=== PATIENT | female | born 1990 | race African-American/Black ===

== ENCOUNTER 2016-12-12 15:12 | Emergency (ER) | payer OTHER ==
[~2016-12-12] VITALS: Ht 157.5 cm; Wt 71.2 kg
[2016-12-12 15:15] VITALS: BP 126/63
[2016-12-12 15:41] LABS: BASO % 1 % (0-3); EOS % 1 % (0-3); HEMATOCRIT 33.7 % (36.0-47.0); HEMOGLOBIN 10.9 g/dL (12.0-15.5); LYMPH # 1.6 x10^3/uL (1.0-4.8); LYMPH % 26 % (24-48); MEAN CORPUSCULAR HEMOGLOBIN 24 pg (25-35); MEAN CORPUSCULAR HGB CONC 32 g/dL (31-37); MEAN CORPUSCULAR VOLUME 74 fL (79-100); MONO % 8 % (0-9); NEUT % 65 % (31-73); PLATELET COUNT 314 x10^3/uL (140-400); RED BLOOD COUNT 4.58 x10^6/uL (3.50-5.40); RED CELL DISTRIBUTION WIDTH 13.6 % (11.5-14.5); WHITE BLOOD COUNT 6.2 x10^3/uL (4.0-11.0)
[2016-12-12 16:03] LABS: CALCIUM 8.9 mg/dL (8.5-10.1); CREATININE 0.6 mg/dL (0.6-1.0); GFR 146.2; POTASSIUM 3.6 mmol/L (3.5-5.1)
[2016-12-12 16:13] LABS: ALBUMIN 3.5 g/dL (3.4-5.0); ALBUMIN/GLOBULIN RATIO 0.8 (1.0-1.7); TOTAL BILIRUBIN 0.4 mg/dL (0.2-1.0); TOTAL PROTEIN 8.1 g/dL (6.4-8.2)
[2016-12-12] MEDS ORDERED: ACETAMINOPHEN 325 MG TABLET. PO ONE (16:15)
--- NOTE | 2016-12-12 16:53 | ED.ADGEN ---
Past Medical History Past Medical History: No Pertinent History Past Surgical History: Alcohol Use: None Drug Use: None Adult General Chief Complaint Chief Complaint: VAGINAL BLEEDING HPI HPI Patient is a 26 year old Cha female who presents with vaginal bleeding for the past week. Patient states she is approximately 8-10 months . Bleeding initially was bright red and has turned to dark brown and spotting today. Patient initially reported abdominal/pelvic cramping, but denies any lower pelvic pain or cramping at this time. She denies dizziness lightheadedness shortness of breath chest pain and palpitations. She does report a low-grade headache. Patient does not currently have OB and has not received services. Review of Systems Review of Systems ROS as per HPI. Current Medications Current Medications Current Medications Medications (Trade) Dose Ordered Sig/Koby Start Time Stop Time Status Last Admin Dose Admin Acetaminophen (Tylenol) 650 mg 1X ONCE 12/12/16 16:15 12/12/16 16:16 DC 12/12/16 16:44 650 MG Allergies Allergies Allergies Uncoded Allergies Type Severity Reaction Last Updated Verified chicken Adverse Reaction Intermediate Swelling 06/30/14 Physical Exam Physical Exam Constitutional: Well developed, well nourished, no acute distress, non-toxic appearance. HENT: Normocephalic, atraumatic, bilateral external ears normal, oropharynx moist, no oral exudates, nose normal. Eyes: PERRL. Neck: Normal range of motion. Cardiovascular:Heart rate regular rhythm, no murmur. Lungs & Thorax: Bilateral breath sounds clear to auscultation. Abdomen: Bowel sounds normal, soft, no tenderness. Skin: Warm, dry. Back: No tenderness, no CVA tenderness. Extremities: No tenderness. Neurologic: Alert and oriented X 3, normal motor function, normal sensory function, no focal deficits noted. Psychologic: Affect normal, judgement normal, mood normal. Current Patient Data Vital Signs Vital Signs Date Time Temp Pulse Resp B/P (MAP) Pulse Ox O2 Delivery O2 Flow Rate FiO2 12/12/16 15:15 98.0 98 18 126/63 (84) 100 Room Air 98.0 Lab Values Laboratory Tests Test 12/12/16 14:26 12/12/16 15:29 POC Urine HCG, Qualitative Hcg positive (Negative) White Blood Count 6.2 x10^3/uL (4.0-11.0) Red Blood Count 4.58 x10^6/uL (3.50-5.40) Hemoglobin 10.9 g/dL (12.0-15.5) L Hematocrit 33.7 % (36.0-47.0) L Mean Corpuscular Volume 74 fL (79-100) L Mean Corpuscular Hemoglobin 24 pg (25-35) L Mean Corpuscular Hemoglobin Concent 32 g/dL (31-37) Red Cell Distribution Width 13.6 % (11.5-14.5) Platelet Count 314 x10^3/uL (140-400) Neutrophils (%) (Auto) 65 % (31-73) Lymphocytes (%) (Auto) 26 % (24-48) Monocytes (%) (Auto) 8 % (0-9) Eosinophils (%) (Auto) 1 % (0-3) Basophils (%) (Auto) 1 % (0-3) Neutrophils # (Auto) 4.0 x10^3uL (1.8-7.7) Lymphocytes # (Auto) 1.6 x10^3/uL (1.0-4.8) Monocytes # (Auto) 0.5 x10^3/uL (0.0-1.1) Eosinophils # (Auto) 0.1 x10^3/uL (0.0-0.7) Basophils # (Auto) 0.0 x10^3/uL (0.0-0.2) Maternal Serum HCG Beta Subunit 537066 mIU/mL (0-6) H Sodium Level 137 mmol/L (136-145) Potassium Level 3.6 mmol/L (3.5-5.1) Chloride Level 104 mmol/L (98-107) Carbon Dioxide Level 24 mmol/L (21-32) Anion Gap 9 (6-14) Blood Urea Nitrogen 8 mg/dL (7-20) Creatinine 0.6 mg/dL (0.6-1.0) Estimated GFR (Cockcroft-Gault) 146.2 BUN/Creatinine Ratio 13 (6-20) Glucose Level 106 mg/dL (70-99) H Calcium Level 8.9 mg/dL (8.5-10.1) Total Bilirubin 0.4 mg/dL (0.2-1.0) Aspartate Amino Transferase (AST) 25 U/L (15-37) Alanine Aminotransferase (ALT) 21 U/L (14-59) Alkaline Phosphatase 45 U/L (46-116) L Total Protein 8.1 g/dL (6.4-8.2) Albumin 3.5 g/dL (3.4-5.0) Albumin/Globulin Ratio 0.8 (1.0-1.7) L Laboratory Tests 12/12/16 15:29 Laboratory Tests 12/12/16 15:29 EKG EKG [] Radiology/Procedures Radiology/Procedures [OB ultrasound: Viable 11 week IUP.] Course & Med Decision Making Course & Med Decision Making Pertinent Labs and Imaging studies reviewed. (See chart for details) [First trimester vaginal bleeding with viable IUP. Patient has had bleeding for the past 5 days which is gradually subsided. She is a positive. Recommend home with pelvic rest and FL[facility] SERVICE SPECIALIST referral] Yue Disclaimer Dragon Disclaimer This electronic medical record was generated, in whole or in part, using a voice recognition dictation system. CELSA GRANT DO December 12, 2016 16:53
--- NOTE | 2016-12-12 19:27 | RAD ---
PROCEDURE First trimester OB ultrasound. HISTORY Vaginal bleeding. TECHNIQUE Transabdominal 1st trimester OB ultrasound was performed. COMPARISON None for this . FINDINGS Single live intrauterine with heart tones of 155 beats per minute is noted. [place] lump length measurement on average is 4.60 centimeters, 11 weeks 3 days for an GRETEL by ultrasound of June 30, 2017. There is no evidence of implantation bleed. Gestational sac size is concordant. Both maternal ovaries are visualized and grossly unremarkable, color flow and waveform documented. There is no free pelvic fluid. IMPRESSION Single live intrauterine measuring 11 weeks 3 days with heart tones of 155 beats per minute. Electronically signed by: Neil Ulloa MD (December 12, 2016 18:54:22)
== END 2016-12-12 19:20 | disposition home or self-care (01) ==
LOC: ER 17:15
DX: O46.91 Antepartum hemorrhage, unspecified, first trimester (principal); Z91.018 Allergy to other foods; Z3A.11 11 weeks gestation of pregnancy
CPT/HCPCS: 36415; 76801; 80053; 81025; 84702; 84703; 85027; 99285-25

== ENCOUNTER 2017-06-23 07:03 | Inpatient (IN) | payer OTHER ==
[~2017-06-23] VITALS: Ht 154.9 cm; Wt 71.7 kg
[2017-06-23] MEDS ORDERED: IBUPROFEN 600 MG TABLET. PO PRN (08:00)
[2017-06-23] MEDS ORDERED: fentaNYL PF VIAL 100 MCG/2 ML VIAL IV PRN (08:00)
[2017-06-23] MEDS ORDERED: LIDOCAINE 1% PF 30 ML VIAL. INJ PRN (08:00)
[2017-06-23] MEDS ORDERED: 0.9 % SODIUM CHLORIDE 10 ML DISP.SYRIN. IV PRN (08:00)
[2017-06-23] MEDS ORDERED: OXYTOCIN 30 UNIT/500 ML PREMIX 500 ML IV PRN (08:00)
[2017-06-23] MEDS ORDERED: IV RINGERS,LACTATED 1000ML 1,000 ML IV PRN (08:00)
[2017-06-23] MEDS: IV RINGERS,LACTATED 1000ML 1,000 ML IV SCH ×2 (08:10→09:36)
[2017-06-23 08:11] LABS: BASO % 0 % (0-3); EOS % 0 % (0-3); HEMATOCRIT 37.8 % (36.0-47.0); HEMOGLOBIN 11.8 g/dL (12.0-15.5); LYMPH % 13 % (24-48); MEAN CORPUSCULAR HEMOGLOBIN 23 pg (25-35); MEAN CORPUSCULAR HGB CONC 31 g/dL (31-37); MEAN CORPUSCULAR VOLUME 75 fL (79-100); MONO % 6 % (0-9); NEUT % 81 % (31-73); PLATELET COUNT 215 x10^3/uL (140-400); RED BLOOD COUNT 5.05 x10^6/uL (3.50-5.40); RED CELL DISTRIBUTION WIDTH 14.1 % (11.5-14.5)
[2017-06-23] MEDS ORDERED: AMPICILLIN SODIUM 2 GM in IV NORMAL SALINE 100ML 100 ML IV ONE (08:30)
[2017-06-23] MEDS ORDERED: AMPICILLIN SODIUM IV Push 2 GM VIAL. IVP ONE (08:30)
[2017-06-23] MEDS ORDERED: ROPIVacaine 0.2% IN 0.9%NACL PF 40 MG/20 ML DISP.SYRIN. ONE ×2 (09:14→10:00)
[2017-06-23] MEDS ORDERED: L&D EPIDURAL CASSETTE 100 ML EP ONE (09:15)
[2017-06-23] MEDS ORDERED: L&D EPIDURAL CASSETTE 100 ML PUMP.RESVR. EP ONE (10:00)
--- NOTE | 2017-06-23 11:01 | PDOC1 ---
OB - History Hx of Present Care: Good Care Ultrasounds: Normal mid trimester US Obstetrical Complications: None Medical Complications: None Past Family/Social History * Past Medical, Surgical, Family and Obstetric Histories reviewed from chart. Blood Type: A+ Rubella: Immune RPR/VDRL: Negative GBS Status: Negative HBsAG: Negative OB - Chief Complaint & HPI Date of Admission: Date of Admission: Jun 23, 2017 at 07:03 Chief Complaint/History : 4 Para: 3 Reason for admission: active labor Admission Nurse Assessment Rev: Yes Problems: OB - Admission Exam Physical Exam Vitals: VS - Last 72 Hours, by Label Date Time Temp Pulse Resp B/P (MAP) Pulse Ox O2 Delivery O2 Flow Rate FiO2 06/23/17 08:52 22 Room Air 06/23/17 08:09 22 Room Air HEENT: Normal, Nasal Mucosa Normal, Oropharynx Normal, Moist Membranes, Fontanelles Normal Heart: Regular Rate Lungs: Clear, Equal Abdomen: Gravid Extremities: Normal Pulses, No tenderness or swelling Cervical Dilatation: 7cm Effacement: 75% Station: -1 Membranes: Intact Amniotic Fluid: Clear Heart Rate: Normal Accelerations: Accelerations Present Decelerations: No decelerations Short Term Variability: Present Mcfp Variability: Moderate Contractions on Admission: < 5 Minutes Apart Intensity: Firm Assessment/Plan Assessment/Plan TIUP -MANI Problems: KAVON STONE MD Jun 23, 2017 11:01
--- NOTE | 2017-06-23 11:02 | PDOC ---
VAGINAL DELIVERY DATE DATE: 06/23/17 TIME: 11:01 : 4 Para: 3 EDC: Jul 07, 2017 VAGINAL DELIVERY: VTX VACCUM ASSISTED: No PLACENTA: Spontaneous SEX: Male WEIGHT Weight [ ] Nuchal Cord: No Amniotic Fluid: Clear PAIN: Epidural EPISIOTOMY: No EXTENSION: No EBL 300cc COMPLICATIONS None CONDITION Stable Problems: KAVON STONE MD Jun 23, 2017 11:02
[2017-06-23] MEDS: IBUPROFEN 800 MG TABLET. PO PRN ×2 (11:31→20:19)
[2017-06-23] MEDS ORDERED: HYDR-971 PO (12:20)
[2017-06-23] MEDS ORDERED: HYDR50TA PO (12:20)
[2017-06-23] MEDS ORDERED: PREN1TAB80 PO (12:20)
[2017-06-23] MEDS ORDERED: IV RINGERS,LACTATED 1000ML 1,000 ML IV SCH (13:07)
[2017-06-23] MEDS ORDERED: fentaNYL PF VIAL 100 MCG/2 ML VIAL EPI PRN (13:15)
[2017-06-23] MEDS ORDERED: ROPIVacaine 0.2% IN 0.9%NACL PF 40 MG/20 ML DISP.SYRIN. EPI PRN (13:15)
[2017-06-23] MEDS ORDERED: NALOXONE 0.4 MG/ML VIAL. IV PRN (13:15)
[2017-06-23] MEDS ORDERED: L&D EPIDURAL CASSETTE 100 ML EP PRN (13:15)
[2017-06-23] MEDS ORDERED: BUPIVACAINE MPF 0.25% 10 ML VIAL. EPI PRN (13:15)
[2017-06-23 15:00] VITALS: BP 102/68
[2017-06-23] MEDS: HYDROcodone/APAP 5/325MG 1 TAB TABLET PO PRN ×2 (15:10→20:19)
[2017-06-23 17:30] VITALS: BP 110/72
[2017-06-23 22:04] VITALS: BP 105/65
[2017-06-24] MEDS: IBUPROFEN 800 MG TABLET. PO PRN ×2 (06:10→20:02)
[2017-06-24] MEDS: HYDROcodone/APAP 5/325MG 1 TAB TABLET PO PRN ×2 (06:11→20:02)
[2017-06-24 06:12] VITALS: BP 98/63
[2017-06-24 10:00] VITALS: BP 99/59
--- NOTE | 2017-06-24 14:14 | PDOC ---
Provider Note Provider Note Dooing well VSS Uterus NTTP FU in AM KAVON STONE MD Jun 24, 2017 14:14
[2017-06-24 16:00] VITALS: BP 110/69
[2017-06-24 22:30] VITALS: BP 102/61
[2017-06-25 05:15] VITALS: BP 105/67
[2017-06-25] MEDS: IBUPROFEN 800 MG TABLET. PO PRN ×2 (05:21→12:29)
[2017-06-25] MEDS: HYDROcodone/APAP 5/325MG 1 TAB TABLET PO PRN ×2 (05:21→17:40)
[2017-06-25 14:46] VITALS: BP 97/61
[2017-06-25] MEDS ORDERED: HYDR-971 PO (18:01)
[2017-06-25] MEDS ORDERED: NAPR500T4 PO (18:01)
--- NOTE | 2017-06-25 18:02 | PDOC3 ---
OB DISCHARGE SUMMARY DATE OF ADMISSION: 06/23/17 DATE OF DISCHARGE: 06/25/17 REASON FOR ADMISSION: Onset of labor PROCEDURES: Ultrasound INTRAPARTUM PROCEDURES: Spontanous Vag Deliv PROCEDURES: None OPERATIONS: None DISCHARGE DIAGNOSIS: Term Delivered DISCHARGE INFORMATION: Activity, Diet HOSPITAL COURSE Unremarkable CONDITION AT DISCHARGE Stable KAVON STONE MD Jun 25, 2017 18:02
== END 2017-06-25 18:47 | disposition home or self-care (01) | DRG 775 ==
LOC: 3 SO LND 07:03 → OBSVTOIN 08:00 → 3 NORTH 13:30
PROVIDERS: ADMIT Specialist; ATTEND Specialist
PROC: 10E0XZZ Delivery of Products of Conception, External Approach (ICD-10-PCS; principal; 2017-06-23)
PROC: 3E0R3BZ Introduction of Anesthetic Agent into Spinal Canal, Percutaneous Approach (ICD-10-PCS; 2017-06-23)
PROC: 00HU33Z Insertion of Infusion Device into Spinal Canal, Percutaneous Approach (ICD-10-PCS; 2017-06-23)
DX: O34.219 Maternal care for unspecified type scar from previous cesarean delivery (principal); Z37.0 Single live birth; Z3A.00 Weeks of gestation of pregnancy not specified
CPT/HCPCS: 36415; 85025; 86593; 86850; 86900; 86901; G0379; J0290; J2590; J2795; J3010; J7120

== ENCOUNTER 2017-10-12 13:16 | Emergency (ER) | payer OTHER ==
[2017-10-12 14:07] LABS: BILIRUBIN,URINE NEGATIVE (NEG); CLARITY,URINE CLEAR; COLOR,URINE YELLOW; GLUCOSE,URINE NEGATIVE (NEG); NITRITE,URINE NEGATIVE (NEG); PH,URINE 5.5; PROTEIN,URINE NEGATIVE (NEG-TRACE); UROBILINOGEN,URINE 0.2 mg/dL (0.2 mg/dL)
[2017-10-12 14:18] LABS: BACTERIA,URINE 0 /HPF (0-FEW); RBC,URINE 0 /HPF (0-2); SQUAMOUS EPITHELIAL CELL,UR OCC /LPF
[2017-10-12 14:19] LABS: NEGATIVE OBC STREP NEG; POSITIVE OBC STREP POS
[2017-10-12 14:21] LABS: INFLUENZA A PATIENT NEGATIVE (NEGATIVE); INFLUENZA B PATIENT NEGATIVE (NEGATIVE); OBC FLU VALID
[2017-10-12] MEDS: IBUPROFEN 400 MG TABLET. PO (14:33)
[2017-10-12] MEDS: cefTRIAXone IM 1 GM VIAL IM (15:03)
== END 2017-10-12 15:26 | disposition home or self-care (01) ==
LOC: ER 13:16
DX: J02.0 Streptococcal pharyngitis (principal); M54.5 Low back pain; R51 Headache; Z91.018 Allergy to other foods
CPT/HCPCS: 81001; 87804; 87804-59; 87880; 96372; 99284-25; J0696

== ENCOUNTER → 2018-03-22 | Outpatient (CLI) | payer OTHER ==
[2017-10-12 13:20] VITALS: BP 111/68
[~2018-03-22] MED LIST: AMOX875T PO; CONTRAST GIVEN. MC PRN; HYDR-971 PO; HYDR50TA PO; IOHEXOL 240 MG/ML 50ML VIAL. PO ONE; IOHEXOL 300 MG/ML 100ML VIAL. IV ONE; NAPR-514 PO; PREN1TAB80 PO
--- NOTE | 2018-03-22 10:44 | RAD ---
Complete abdominal ultrasound dated 03/22/2018. No comparison available. CLINICAL INDICATION: Abdominal pain. Right upper quadrant pain. FINDINGS: Liver is homogeneous in echogenicity. No focal hepatic mass. Intrahepatic and extra hepatic biliary tree normal in caliber. The common bile duct measures 3 mm. Gallbladder normal in size and echogenicity. No gallbladder wall thickening or pericholecystic fluid. No gallstones are seen. Right kidney measures 12.3 cm in length. Left kidney measures 12.9 cm in length. No hydronephrosis. Spleen is homogeneous in echogenicity and measures 9.6 cm longitudinal. Limited visualized portions of pancreas, aorta and IVC unremarkable. No significant ascites. IMPRESSION: No acute sonographic abnormality. Electronically signed by: Yefri Sheppard MD (03/22/2018 10:41 AM) [id number]
--- NOTE | 2018-03-22 12:54 | RAD ---
CT ABDOMEN W/CONTRAST dated 03/22/2018 11:29 AM Indication: History of ventral hernia.VENTRAL HERNIA. IV OMNI 300 75 MLS AND PO OMNI 240 50 MLS. Comparison: No comparison is available. Technique: Contiguous axial imaging of the abdomen performed after the administration of 75 cc Isovue-370. One or more of the following individualized dose reduction techniques were utilized for this examination: 1. Automated exposure control 2. Adjustment of the mA and/or kV according to patient size 3. Use of iterative reconstruction technique Findings: Limited images of lung bases are clear. Heart size within normal limits. No pleural or pericardial effusion. Liver, spleen, pancreas, adrenal glands, gallbladder and kidneys are unremarkable. No hydronephrosis. Partially opacified GI tract is normal in caliber. Possible mild wall thickening of the ascending colon. The appendix is upper limits of normal caliber measuring 6 to 7 mm. No definite inflammatory changes in the periappendiceal fat. No free fluid. There a few borderline enlarged lymph nodes in the ileocolic region and right mesentery measuring up to 14 mm short axis (image 36). No free fluid or retroperitoneal adenopathy. The abdominal aorta normal in caliber. Small supra umbilical ventral hernia containing only fat. Bone windows show no acute findings. IMPRESSION: 1. Suspected mild wall thickening of the descending colon, nonspecific. Consider mild infectious or inflammatory colitis. 2. The appendix is upper limits of normal in caliber, however there are no inflammatory changes in the periappendiceal fat. This could be a normal variant. Early appendicitis cannot be completely excluded. Recommend correlation with clinical and laboratory data. 3. Mildly enlarged ileocolic lymph nodes, nonspecific. 4. Small supraumbilical ventral hernia containing only fat. Electronically signed by: Yefri Sheppard MD (03/22/2018 12:51 PM) [id number]
== END | disposition home or self-care (01) ==
LOC: US 09:24
PROVIDERS: ATTEND Specialist
DX: K43.9 Ventral hernia without obstruction or gangrene (principal); R60.0 Localized edema; Z91.018 Allergy to other foods
CPT/HCPCS: 74160; 76700; Q9966; Q9967

== ENCOUNTER → 2018-04-15 | Day surgery (SDC) | payer OTHER ==
[~2018-04-15] VITALS: Ht 154.9 cm; Wt 68.0 kg
[~2018-04-15] MED LIST changes: +BUPIVAC MPF-EPI 0.5%-1:200000 30 ML VIAL. ONE; -CONTRAST GIVEN. MC PRN; +DEXAMETHASONE SOD PHOS 20 MG/5 ML VIAL. ONE; +ESMOLOL 100 MG/10 ML VIAL. IV ONE; +GLYCOPYRROLATE 1 MG/5 ML VIAL. ONE; +HYDROcodone/APAP 7.5/325MG 1 TAB TABLET PO ONE; +HYDROmorphone 2 MG/ML VIAL IV PRN; -IOHEXOL 240 MG/ML 50ML VIAL. PO ONE; -IOHEXOL 300 MG/ML 100ML VIAL. IV ONE; +IV RINGERS,LACTATED 1000ML 1,000 ML IV SCH; +LIDOCAINE 1% PF 2 ML VIAL. ID PRN; +MIDAZOLAM HCL/PF 2 MG/2 ML VIAL. ONE; +MORPHINE SULFATE 2 MG/ML VIAL. IV PRN; +NEOSTIGMINE METHYLSULFATE 5 MG/5 ML SYRINGE. ONE; +ONDANSETRON PF 4 MG/2 ML VIAL. IV PRN; +ONDANSETRON PF 4 MG/2 ML VIAL. ONE; +PROCHLORPERAZINE 10 MG/2 ML VIAL. IV PRN; +PROPOFOL 20 ML IV ONE; +ROCURONIUM 100 MG/10 ML VIAL. ONE; +SEVOFLURANE 61 TO 120 MINUTES. IH ONE; +fentaNYL PF VIAL 100 MCG/2 ML VIAL IV PRN; +fentaNYL PF VIAL 100 MCG/2 ML VIAL ONE
[2018-04-15 09:02] LABS: U PREG PATIENT NEGATIVE (NEG)
[2018-04-15 09:04] LABS: BASO % 1 % (0-3); EOS # 0.1 x10^3/uL (0.0-0.7); EOS % 2 % (0-3); HEMATOCRIT 31.8 % (36.0-47.0); HEMOGLOBIN 10.3 g/dL (12.0-15.5); LYMPH # 1.3 x10^3/uL (1.0-4.8); LYMPH % 24 % (24-48); MEAN CORPUSCULAR HEMOGLOBIN 23 pg (25-35); MEAN CORPUSCULAR HGB CONC 32 g/dL (31-37); MEAN CORPUSCULAR VOLUME 73 fL (79-100); MONO # 0.5 x10^3/uL (0.0-1.1); MONO % 9 % (0-9); NEUT # 3.6 x10^3uL (1.8-7.7); NEUT % 65 % (31-73); PLATELET COUNT 378 x10^3/uL (140-400); RED BLOOD COUNT 4.38 x10^6/uL (3.50-5.40); RED CELL DISTRIBUTION WIDTH 14.9 % (11.5-14.5); WHITE BLOOD COUNT 5.5 x10^3/uL (4.0-11.0)
[2018-04-15 09:10] LABS: CALCIUM 8.9 mg/dL (8.5-10.1); CREATININE 0.8 mg/dL (0.6-1.0); GFR 104.1; POTASSIUM 3.6 mmol/L (3.5-5.1)
[2018-04-15 09:12] LABS: PROTHROMBIN TIME PATIENT 13.3 SEC (11.7-14.0)
[2018-04-15 09:17] LABS: ALBUMIN 3.4 g/dL (3.4-5.0); ALBUMIN/GLOBULIN RATIO 0.7 (1.0-1.7); TOTAL BILIRUBIN 0.2 mg/dL (0.2-1.0); TOTAL PROTEIN 8.5 g/dL (6.4-8.2)
--- NOTE | 2018-04-15 09:31 | PDOC ---
SURGICAL PROGRESS NOTE Subjective No change in disctated H&P Vital Signs Vital Signs Date Time Temp Pulse Resp B/P (MAP) Pulse Ox O2 Delivery O2 Flow Rate FiO2 04/15/18 08:14 Room Air 04/15/18 08:11 97.2 80 98 97.2 04/15/18 08:07 18 114/68 Labs Laboratory Tests Test 04/15/18 07:50 04/15/18 08:40 Urine Test Negative (NEG) White Blood Count 5.5 x10^3/uL (4.0-11.0) Red Blood Count 4.38 x10^6/uL (3.50-5.40) Hemoglobin 10.3 g/dL (12.0-15.5) Hematocrit 31.8 % (36.0-47.0) Mean Corpuscular Volume 73 fL (79-100) Mean Corpuscular Hemoglobin 23 pg (25-35) Mean Corpuscular Hemoglobin Concent 32 g/dL (31-37) Red Cell Distribution Width 14.9 % (11.5-14.5) Platelet Count 378 x10^3/uL (140-400) Neutrophils (%) (Auto) 65 % (31-73) Lymphocytes (%) (Auto) 24 % (24-48) Monocytes (%) (Auto) 9 % (0-9) Eosinophils (%) (Auto) 2 % (0-3) Basophils (%) (Auto) 1 % (0-3) Neutrophils # (Auto) 3.6 x10^3uL (1.8-7.7) Lymphocytes # (Auto) 1.3 x10^3/uL (1.0-4.8) Monocytes # (Auto) 0.5 x10^3/uL (0.0-1.1) Eosinophils # (Auto) 0.1 x10^3/uL (0.0-0.7) Basophils # (Auto) 0.0 x10^3/uL (0.0-0.2) Prothrombin Time 13.3 SEC (11.7-14.0) Prothromb Time International Ratio 1.1 (0.8-1.1) Sodium Level 140 mmol/L (136-145) Potassium Level 3.6 mmol/L (3.5-5.1) Chloride Level 106 mmol/L (98-107) Carbon Dioxide Level 23 mmol/L (21-32) Anion Gap 11 (6-14) Blood Urea Nitrogen 15 mg/dL (7-20) Creatinine 0.8 mg/dL (0.6-1.0) Estimated GFR (Cockcroft-Gault) 104.1 BUN/Creatinine Ratio 19 (6-20) Glucose Level 84 mg/dL (70-99) Calcium Level 8.9 mg/dL (8.5-10.1) Total Bilirubin 0.2 mg/dL (0.2-1.0) Aspartate Amino Transf (AST/SGOT) 14 U/L (15-37) Alanine Aminotransferase (ALT/SGPT) 20 U/L (14-59) Alkaline Phosphatase 93 U/L (46-116) Total Protein 8.5 g/dL (6.4-8.2) Albumin 3.4 g/dL (3.4-5.0) Albumin/Globulin Ratio 0.7 (1.0-1.7) Laboratory Tests Test 04/15/18 07:50 04/15/18 08:40 Urine Test Negative (NEG) White Blood Count 5.5 x10^3/uL (4.0-11.0) Red Blood Count 4.38 x10^6/uL (3.50-5.40) Hemoglobin 10.3 g/dL (12.0-15.5) Hematocrit 31.8 % (36.0-47.0) Mean Corpuscular Volume 73 fL (79-100) Mean Corpuscular Hemoglobin 23 pg (25-35) Mean Corpuscular Hemoglobin Concent 32 g/dL (31-37) Red Cell Distribution Width 14.9 % (11.5-14.5) Platelet Count 378 x10^3/uL (140-400) Neutrophils (%) (Auto) 65 % (31-73) Lymphocytes (%) (Auto) 24 % (24-48) Monocytes (%) (Auto) 9 % (0-9) Eosinophils (%) (Auto) 2 % (0-3) Basophils (%) (Auto) 1 % (0-3) Neutrophils # (Auto) 3.6 x10^3uL (1.8-7.7) Lymphocytes # (Auto) 1.3 x10^3/uL (1.0-4.8) Monocytes # (Auto) 0.5 x10^3/uL (0.0-1.1) Eosinophils # (Auto) 0.1 x10^3/uL (0.0-0.7) Basophils # (Auto) 0.0 x10^3/uL (0.0-0.2) Prothrombin Time 13.3 SEC (11.7-14.0) Prothromb Time International Ratio 1.1 (0.8-1.1) Sodium Level 140 mmol/L (136-145) Potassium Level 3.6 mmol/L (3.5-5.1) Chloride Level 106 mmol/L (98-107) Carbon Dioxide Level 23 mmol/L (21-32) Anion Gap 11 (6-14) Blood Urea Nitrogen 15 mg/dL (7-20) Creatinine 0.8 mg/dL (0.6-1.0) Estimated GFR (Cockcroft-Gault) 104.1 BUN/Creatinine Ratio 19 (6-20) Glucose Level 84 mg/dL (70-99) Calcium Level 8.9 mg/dL (8.5-10.1) Total Bilirubin 0.2 mg/dL (0.2-1.0) Aspartate Amino Transf (AST/SGOT) 14 U/L (15-37) Alanine Aminotransferase (ALT/SGPT) 20 U/L (14-59) Alkaline Phosphatase 93 U/L (46-116) Total Protein 8.5 g/dL (6.4-8.2) Albumin 3.4 g/dL (3.4-5.0) Albumin/Globulin Ratio 0.7 (1.0-1.7) JUDY SLOAN MD Apr 15, 2018 09:31
--- NOTE | 2018-04-15 09:33 | HP ---
ADMIT DATE: 04/15/2018 HISTORY OF PRESENT ILLNESS: The patient is sent to me by her poultry debeaker because of periumbilical pain. Apparently, this has been going on and off since her last delivery and she has been seen and in fact had MRI, which showed a supraumbilical ventral hernia. The patient has pain there from time to time and the MRI did show fat in it, no bowel in it. PAST MEDICAL HISTORY: Shows normal childhood diseases. She has no history of diabetes, cancer, TB, heart disease, or other problems. She has had a sonogram, which showed no abnormalities of the abdomen. ALLERGIES: She has no allergies. PAST SURGICAL HISTORY: Has never had surgery before. SOCIAL HISTORY: She is , has 4 children, the youngest being only a month or 2 old. The patient does not smoke, drink or use illicit drugs. FAMILY HISTORY: Noncontributory. REVIEW OF SYSTEMS: Are just that she has this pain in the periumbilical area fairly sharp, went to the Emergency Room once or twice a couple of weeks ago, in fact in the hospital for 2-3 days. No problems were noted. PHYSICAL EXAMINATION: GENERAL: Shows a slightly obese female, in no acute distress except for some periumbilical pain. HEAD, EARS, EYES, NOSE AND THROAT: Grossly normal. CHEST: Clear to auscultation bilaterally. HEART: No murmurs, heaves, friction rubs or thrills and the rate was 75 beats per minute, was regular. GASTROINTESTINAL: Examination of the abdomen shows it to be somewhat obese. There is pain at the umbilicus and just above it (feel a small bulge when she increased intra-abdominal pressure). This was a tender area. PELVIC: Examination was not done. EXTREMITIES: Grossly normal. IMPRESSION: Ventral hernia. JUDY SLOAN MD DR: MACEY/kendrick JOB#: [id number] / [id number]
--- NOTE | 2018-04-15 09:34 | PDOC ---
SURGICAL PROGRESS NOTE Subjective Op Note: Surgeon.................................................Aron Pre op diag.............................................incarcerated ventral hernia Post op diag...........................................same Anesthesia.............................................general Procedure..............................................repair ventral hernia Drain.....................................................none fluids.....................................................see anesthesia sheet Blood loss............................................10cc Condition...............................................satisfactory Vital Signs Vital Signs Date Time Temp Pulse Resp B/P (MAP) Pulse Ox O2 Delivery O2 Flow Rate FiO2 04/15/18 08:14 Room Air 04/15/18 08:11 97.2 80 98 97.2 04/15/18 08:07 18 114/68 Labs Laboratory Tests Test 04/15/18 07:50 04/15/18 08:40 Urine Test Negative (NEG) White Blood Count 5.5 x10^3/uL (4.0-11.0) Red Blood Count 4.38 x10^6/uL (3.50-5.40) Hemoglobin 10.3 g/dL (12.0-15.5) Hematocrit 31.8 % (36.0-47.0) Mean Corpuscular Volume 73 fL (79-100) Mean Corpuscular Hemoglobin 23 pg (25-35) Mean Corpuscular Hemoglobin Concent 32 g/dL (31-37) Red Cell Distribution Width 14.9 % (11.5-14.5) Platelet Count 378 x10^3/uL (140-400) Neutrophils (%) (Auto) 65 % (31-73) Lymphocytes (%) (Auto) 24 % (24-48) Monocytes (%) (Auto) 9 % (0-9) Eosinophils (%) (Auto) 2 % (0-3) Basophils (%) (Auto) 1 % (0-3) Neutrophils # (Auto) 3.6 x10^3uL (1.8-7.7) Lymphocytes # (Auto) 1.3 x10^3/uL (1.0-4.8) Monocytes # (Auto) 0.5 x10^3/uL (0.0-1.1) Eosinophils # (Auto) 0.1 x10^3/uL (0.0-0.7) Basophils # (Auto) 0.0 x10^3/uL (0.0-0.2) Prothrombin Time 13.3 SEC (11.7-14.0) Prothromb Time International Ratio 1.1 (0.8-1.1) Sodium Level 140 mmol/L (136-145) Potassium Level 3.6 mmol/L (3.5-5.1) Chloride Level 106 mmol/L (98-107) Carbon Dioxide Level 23 mmol/L (21-32) Anion Gap 11 (6-14) Blood Urea Nitrogen 15 mg/dL (7-20) Creatinine 0.8 mg/dL (0.6-1.0) Estimated GFR (Cockcroft-Gault) 104.1 BUN/Creatinine Ratio 19 (6-20) Glucose Level 84 mg/dL (70-99) Calcium Level 8.9 mg/dL (8.5-10.1) Total Bilirubin 0.2 mg/dL (0.2-1.0) Aspartate Amino Transf (AST/SGOT) 14 U/L (15-37) Alanine Aminotransferase (ALT/SGPT) 20 U/L (14-59) Alkaline Phosphatase 93 U/L (46-116) Total Protein 8.5 g/dL (6.4-8.2) Albumin 3.4 g/dL (3.4-5.0) Albumin/Globulin Ratio 0.7 (1.0-1.7) Laboratory Tests Test 04/15/18 07:50 04/15/18 08:40 Urine Test Negative (NEG) White Blood Count 5.5 x10^3/uL (4.0-11.0) Red Blood Count 4.38 x10^6/uL (3.50-5.40) Hemoglobin 10.3 g/dL (12.0-15.5) Hematocrit 31.8 % (36.0-47.0) Mean Corpuscular Volume 73 fL (79-100) Mean Corpuscular Hemoglobin 23 pg (25-35) Mean Corpuscular Hemoglobin Concent 32 g/dL (31-37) Red Cell Distribution Width 14.9 % (11.5-14.5) Platelet Count 378 x10^3/uL (140-400) Neutrophils (%) (Auto) 65 % (31-73) Lymphocytes (%) (Auto) 24 % (24-48) Monocytes (%) (Auto) 9 % (0-9) Eosinophils (%) (Auto) 2 % (0-3) Basophils (%) (Auto) 1 % (0-3) Neutrophils # (Auto) 3.6 x10^3uL (1.8-7.7) Lymphocytes # (Auto) 1.3 x10^3/uL (1.0-4.8) Monocytes # (Auto) 0.5 x10^3/uL (0.0-1.1) Eosinophils # (Auto) 0.1 x10^3/uL (0.0-0.7) Basophils # (Auto) 0.0 x10^3/uL (0.0-0.2) Prothrombin Time 13.3 SEC (11.7-14.0) Prothromb Time International Ratio 1.1 (0.8-1.1) Sodium Level 140 mmol/L (136-145) Potassium Level 3.6 mmol/L (3.5-5.1) Chloride Level 106 mmol/L (98-107) Carbon Dioxide Level 23 mmol/L (21-32) Anion Gap 11 (6-14) Blood Urea Nitrogen 15 mg/dL (7-20) Creatinine 0.8 mg/dL (0.6-1.0) Estimated GFR (Cockcroft-Gault) 104.1 BUN/Creatinine Ratio 19 (6-20) Glucose Level 84 mg/dL (70-99) Calcium Level 8.9 mg/dL (8.5-10.1) Total Bilirubin 0.2 mg/dL (0.2-1.0) Aspartate Amino Transf (AST/SGOT) 14 U/L (15-37) Alanine Aminotransferase (ALT/SGPT) 20 U/L (14-59) Alkaline Phosphatase 93 U/L (46-116) Total Protein 8.5 g/dL (6.4-8.2) Albumin 3.4 g/dL (3.4-5.0) Albumin/Globulin Ratio 0.7 (1.0-1.7) JUDY SLOAN MD Apr 15, 2018 09:34
[2018-04-15] MEDS: fentaNYL PF VIAL 100 MCG/2 ML VIAL IV PRN ×2 (12:26→12:33)
[2018-04-15 13:35] VITALS: BP 111/72
--- NOTE | 2018-04-17 23:53 | OP ---
DATE OF SURGERY: SURGEON: Hector Sloan MD PREOPERATIVE DIAGNOSIS: Abdominal wall hernia. POSTOPERATIVE DIAGNOSIS: Umbilical hernia. ANESTHESIA: General. PROCEDURE: Repair of umbilical hernia. TECHNIQUE: Under general anesthesia, the patient was properly prepped and draped in a routine fashion. We thought the patient had an abdominal wall hernia, not an umbilical, as she had been and I saw her in the office and the hernia was more to the right and superior to the umbilicus. After she had delivered, we could see the hernia, but the abdomen did have pain there and the hernia got smaller with time. The patient was not certain if she would get or not. She and her decided not to have mesh put in, knowing that the recurrence rate may be higher. As such, incision was made in the supraumbilical area, carried down through the skin with a 15 blade. We dissected the area making certain there were no other hernias around there and we were able to dissect the sac off the underside of the umbilicus. We opened this into the abdomen. I put my finger in there just a little bit to make sure there were no other hernias above or around the umbilicus and there were not. The fascia was grasped on either side using Chrissy clamps, pulled up and then four 4 to 5 #0 interrupted sutures were placed at the umbilicus. These were tied. The knots were buried using 4-0 Vicryl. The umbilicus was sutured down to the fascia, as it had been taken off the sac prior and during the dissection. This was done with 4-0 Vicryl. The subcutaneous was approximated in some areas with interrupted 4-0 Vicryl and the skin was closed using the subcuticular 5-0 Vicryl. Sterile dressing was applied and the procedure was terminated. The blood loss was less than 5 or 6 mL. No drains were used. Fluids given can be obtained from the anesthesia sheet and the condition of the patient was satisfactory, as she has returned to the recovery room. HECTOR SLOAN MD DR: MACEY/kendrick JOB#: [id number] / [id number]
== END | disposition home or self-care (01) ==
LOC: SURG 07:16
PROVIDERS: ATTEND Specialist
DX: K42.9 Umbilical hernia without obstruction or gangrene (principal); Z79.01 Long term (current) use of anticoagulants; Z91.018 Allergy to other foods; Z79.2 Long term (current) use of antibiotics; Z79.899 Other long term (current) drug therapy
CPT/HCPCS: 36415; 49585; 80053; 81025; 85025; 85610; A7015; J0690; J1100; J2250; J2405; J2704; J2710; J3010; J3490; J7120

== ENCOUNTER 2018-11-04 13:23 | Emergency (ER) | payer OTHER ==
[~2018-11-04] VITALS: Ht 154.9 cm; Wt 68.0 kg
[~2018-11-04 13:23] MED LIST changes: -BUPIVAC MPF-EPI 0.5%-1:200000 30 ML VIAL. ONE; -DEXAMETHASONE SOD PHOS 20 MG/5 ML VIAL. ONE; -ESMOLOL 100 MG/10 ML VIAL. IV ONE; -GLYCOPYRROLATE 1 MG/5 ML VIAL. ONE; +HYDR-3164 PO; -HYDR-971 PO; -HYDROcodone/APAP 7.5/325MG 1 TAB TABLET PO ONE; -HYDROmorphone 2 MG/ML VIAL IV PRN; -IV RINGERS,LACTATED 1000ML 1,000 ML IV SCH; -LIDOCAINE 1% PF 2 ML VIAL. ID PRN; -MIDAZOLAM HCL/PF 2 MG/2 ML VIAL. ONE; -MORPHINE SULFATE 2 MG/ML VIAL. IV PRN; -NEOSTIGMINE METHYLSULFATE 5 MG/5 ML SYRINGE. ONE; -ONDANSETRON PF 4 MG/2 ML VIAL. IV PRN; -ONDANSETRON PF 4 MG/2 ML VIAL. ONE; -PROCHLORPERAZINE 10 MG/2 ML VIAL. IV PRN; -PROPOFOL 20 ML IV ONE; -ROCURONIUM 100 MG/10 ML VIAL. ONE; -SEVOFLURANE 61 TO 120 MINUTES. IH ONE; -fentaNYL PF VIAL 100 MCG/2 ML VIAL IV PRN; -fentaNYL PF VIAL 100 MCG/2 ML VIAL ONE
[2018-11-04 13:30] VITALS: BP 115/74
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
[2018-11-04] MEDS ORDERED: ACETAMINOPHEN 500 MG TABLET PO ONE (15:45)
[2018-11-04] MEDS ORDERED: CYCL10TA2 PO (15:49)
[2018-11-04] MEDS ORDERED: DICL50TA4 PO (15:49)
== END 2018-11-04 16:09 | disposition home or self-care (01) ==
LOC: ER 13:23
DX: S13.8XXA Sprain of joints and ligaments of other parts of neck, initial encounter (principal); S00.03XA Contusion of scalp, initial encounter; M25.521 Pain in right elbow; M25.511 Pain in right shoulder; Z98.890 Other specified postprocedural states; Z91.018 Allergy to other foods; V48.0XXA Car driver injured in noncollision transport accident in nontraffic accident, initial encounter; Y93.89 Activity, other specified; Y92.481 Parking lot as the place of occurrence of the external cause; Y99.8 Other external cause status
CPT/HCPCS: 70450; 72125; 73030; 73080; 81025; 99284-25

== ENCOUNTER 2019-08-03 17:44 | Emergency (ER) | payer SELFPAY ==
[~2019-08-03] VITALS: Ht 154.9 cm; Wt 67.1 kg
[~2019-08-03 17:44] MED LIST changes: +CYCL10TA2 PO; +DICL50TA4 PO; +FAMO-63 PO; +HYOS0.1265 SL; +ONDA4TAB12 PO; +TRAM50TA PO
[2019-08-03 19:19] LABS: BASO % 1 % (0-3); EOS # 0.1 x10^3/uL (0.0-0.7); EOS % 3 % (0-3); HEMATOCRIT 37.4 % (36.0-47.0); HEMOGLOBIN 11.9 g/dL (12.0-15.5); LYMPH # 1.9 x10^3/uL (1.0-4.8); LYMPH % 41 % (24-48); MEAN CORPUSCULAR HEMOGLOBIN 24 pg (25-35); MEAN CORPUSCULAR HGB CONC 32 g/dL (31-37); MEAN CORPUSCULAR VOLUME 74 fL (79-100); MONO # 0.4 x10^3/uL (0.0-1.1); MONO % 8 % (0-9); NEUT # 2.2 x10^3/uL (1.8-7.7); NEUT % 47 % (31-73); PLATELET COUNT 331 x10^3/uL (140-400); RED BLOOD COUNT 5.05 x10^6/uL (3.50-5.40); RED CELL DISTRIBUTION WIDTH 13.8 % (11.5-14.5); WHITE BLOOD COUNT 4.7 x10^3/uL (4.0-11.0)
[2019-08-03] MEDS: ONDANSETRON PF 4 MG/2 ML VIAL. IV ONE (19:19)
[2019-08-03 19:20] LABS: BILIRUBIN,URINE NEGATIVE (NEG); CLARITY,URINE CLEAR; COLOR,URINE YELLOW; NITRITE,URINE NEGATIVE (NEG); PROTEIN,URINE NEGATIVE (NEG-TRACE); UROBILINOGEN,URINE 0.2 mg/dL (0.2 mg/dL)
[2019-08-03] MEDS: FAMOTIDINE 20 MG/2 ML VIAL IVP ONE (19:20)
[2019-08-03] MEDS: fentaNYL PF VIAL 100 MCG/2 ML VIAL IVP ONE (19:20)
[2019-08-03] MEDS: IV NORMAL SALINE 1000ML BAG 1,000 ML IV ONE (19:20)
[2019-08-03 19:24] LABS: BACTERIA,URINE 0 /HPF (0-FEW); RBC,URINE 0 /HPF (0-2); SQUAMOUS EPITHELIAL CELL,UR MOD /LPF; WBC,URINE 0 /HPF (0-4)
[2019-08-03 19:26] LABS: BARBITURATES NEG (NEG); BENZODIAZEPINES NEG (NEG); CANNABINOIDS NEG (NEG); COCAINE NEG (NEG); METHADONE NEG (NEG); OPIATES POS (NEG); PHENCYCLIDINE NEG (NEG)
[2019-08-03 19:27] LABS: AMPHETAMINE/METHAMPHETAMINE NEG (NEG)
[2019-08-03 19:35] LABS: CALCIUM 8.8 mg/dL (8.5-10.1); CREATININE 0.8 mg/dL (0.6-1.0); GFR 102.6; POTASSIUM 3.8 mmol/L (3.5-5.1)
[2019-08-03 19:40] LABS: ALBUMIN 3.8 g/dL (3.4-5.0); TOTAL BILIRUBIN 0.1 mg/dL (0.2-1.0); TOTAL PROTEIN 7.6 g/dL (6.4-8.2)
[2019-08-03] MEDS ORDERED: CONTRAST GIVEN. MC PRN (20:00)
[2019-08-03] MEDS: IOHEXOL 300 MG/ML 100ML VIAL. IV ONE (20:01)
--- NOTE | 2019-08-03 20:17 | RAD ---
Study: CT abdomen/pelvis with intravenous contrast Indication: Abdominal pain. Comparison: 03/10/2019 Technique: Helical CT imaging performed of the abdomen and pelvis after the intravenous administration of 75 cc Omnipaque 300 contrast. Sagittal and coronal reformats were obtained. One or more of the following individualized dose reduction techniques were utilized for this examination: 1. Automated exposure control 2. Adjustment of the mA and/or kV according to patient size 3. Use of iterative reconstruction technique. Findings: Unremarkable lower lungs and visualized heart. No acute abnormality of the liver, gallbladder, pancreas, spleen, adrenal glands or kidneys. No hydroureteronephrosis. Unremarkable urinary bladder. The uterus and ovaries are within normal limits for age. No pericolonic inflammation. Nonobstructed small bowel. Unremarkable stomach. Normal aortic caliber. No free air. Unremarkable body wall soft tissues. No acute osseous abnormality. Impression: No acute abnormality identified throughout the abdomen or pelvis. Electronically signed by: BERNICE BLAKE MD (08/03/2019 8:14 PM) [facility] [place]
[2019-08-03 21:40] VITALS: BP 123/73
[2019-08-03] MEDS ORDERED: ONDA4TAB12 PO (21:46)
[2019-08-03] MEDS ORDERED: DICY20TA3 PO (21:46)
--- NOTE | 2019-08-03 21:47 | PHYS DOC ---
Past Medical History Past Medical History: No Pertinent History (ROQUE ROJAS APRN) Past Surgical History: Additional Past Surgical Histo: hernia repair (ROQUE ROJAS APRN) Alcohol Use: None Drug Use: None (ROQUE ROJAS APRN) Attending Signature I have participated in the care of this patient and I have reviewed and agree with all pertinent clinical information above including history, exam, and recommendations. (LISA FORBES MD) Adult General Chief Complaint Chief Complaint: ABDOMINAL PAIN HPI HPI Patient is a 29 year old female who presents to the ED today complaining of moderate pain around her umbilicus radiating throughout her abdomen, patient reports pain began 4 days ago. Patient denies any nausea vomiting. Describes the pain as sharp and constant. Denies any chance she is . Denies any urg ency frequency or dysuria. She states she took ibuprofen with no relief. She reports history of umbilical hernia repair. (ROQUE ROJAS APRN) Review of Systems Review of Systems Constitutional: Denies fever or chills [] Eyes: Denies change in visual acuity, redness, or eye pain [] HENT: Denies nasal congestion or sore throat [] Respiratory: Denies cough or shortness of breath [] Cardiovascular: No additional information not addressed in HPI [] GI: Reports abdominal pain, denies nausea, vomiting, bloody stools or diarrhea [] : Denies dysuria or hematuria [] Musculoskeletal: Denies back pain or joint pain [] Integument: Denies rash or skin lesions [] Neurologic: Denies headache, focal weakness or sensory changes [] All other systems were reviewed and found to be within normal limits, except as documented in this note. (ROQUE ROJAS APRN) Current Medications Current Medications Current Medications Medications (Trade) Dose Ordered Sig/[facility] Start Time Stop Time Status Last Admin Dose Admin Famotidine (Pepcid Vial) 20 mg 1X ONCE 08/03/19 19:15 08/03/19 19:16 DC 08/03/19 19:20 20 MG Fentanyl Citrate (Fentanyl 2ml Vial) 50 mcg 1X ONCE 08/03/19 19:15 08/03/19 19:16 DC 08/03/19 19:20 50 MCG Info (CONTRAST GIVEN -- Rx MONITORING) 1 each PRN DAILY PRN 08/03/19 20:00 08/03/19 22:43 DC Iohexol (Omnipaque 300 Mg/ml) 75 ml 1X ONCE 08/03/19 19:45 08/03/19 19:50 DC 08/03/19 20:01 75 ML Ondansetron HCl (Zofran) 4 mg 1X ONCE 08/03/19 19:15 08/03/19 19:16 DC 08/03/19 19:19 4 MG Sodium Chloride 1,000 ml @ 1,000 mls/hr 1X ONCE 08/03/19 19:15 08/03/19 20:14 DC 08/03/19 19:20 1,000 MLS/HR (LISA FORBES MD) Allergies Allergies Allergies Coded Allergies Type Severity Reaction Last Updated Verified chicken derived Allergy Intermediate Swelling 03/10/19 Yes strawberry Adverse Reaction Intermediate Nausea and Vomiting 04/13/18 Yes (LISA FORBES MD) Physical Exam Physical Exam Constitutional: Well developed, well nourished, no acute distress, non-toxic appearance. [] HENT: Normocephalic, atraumatic, bilateral external ears normal, oropharynx moist, no oral exudates, nose normal. [] Eyes: PERRLA, EOMI, conjunctiva normal, no discharge. [] Neck: Normal range of motion, no tenderness, supple, no stridor. [] Cardiovascular:Heart rate regular rhythm, no murmur [] Lungs & Thorax: Bilateral breath sounds clear to auscultation [] Abdomen: Old healed surgical incision noted around the umbilicus from hernia repair. Tenderness around the umbilicus and diffusely throughout the abdomen. Bowel sounds normal, soft, no masses, no pulsatile masses. [] Skin: Warm, dry, no erythema, no rash. [] Back: No tenderness, no CVA tenderness. [] Extremities: No tenderness, no cyanosis, no clubbing, ROM intact, no edema. [] Neurologic: Alert and oriented X 3, normal motor function, normal sensory function, no focal deficits noted. [] Psychologic: Affect normal, judgement normal, mood normal. [] (ROQUE ROJAS APRN) Current Patient Data Vital Signs Vital Signs Date Time Temp Pulse Resp B/P (MAP) Pulse Ox O2 Delivery O2 Flow Rate FiO2 08/03/19 21:40 80 123/73 (90) 98 08/03/19 19:20 18 Room Air 08/03/19 18:40 98.5 98.5 (LISA FORBES MD) Lab Values Laboratory Tests Test 08/03/19 18:50 08/03/19 18:53 White Blood Count 4.7 x10^3/uL (4.0-11.0) Red Blood Count 5.05 x10^6/uL (3.50-5.40) Hemoglobin 11.9 g/dL (12.0-15.5) L Hematocrit 37.4 % (36.0-47.0) Mean Corpuscular Volume 74 fL (79-100) L Mean Corpuscular Hemoglobin 24 pg (25-35) L Mean Corpuscular Hemoglobin Concent 32 g/dL (31-37) Red Cell Distribution Width 13.8 % (11.5-14.5) Platelet Count 331 x10^3/uL (140-400) Neutrophils (%) (Auto) 47 % (31-73) Lymphocytes (%) (Auto) 41 % (24-48) Monocytes (%) (Auto) 8 % (0-9) Eosinophils (%) (Auto) 3 % (0-3) Basophils (%) (Auto) 1 % (0-3) Neutrophils # (Auto) 2.2 x10^3/uL (1.8-7.7) Lymphocytes # (Auto) 1.9 x10^3/uL (1.0-4.8) Monocytes # (Auto) 0.4 x10^3/uL (0.0-1.1) Eosinophils # (Auto) 0.1 x10^3/uL (0.0-0.7) Basophils # (Auto) 0.0 x10^3/uL (0.0-0.2) Urine Collection Type Unknown Urine Color Yellow Urine Clarity Clear Urine pH 6.0 Urine Specific [place] 1.015 Urine Protein Negative mg/dL (NEG-TRACE) Urine Glucose (UA) Negative mg/dL (NEG) Urine Ketones (Stick) Negative mg/dL (NEG) Urine Blood Negative (NEG) Urine Nitrite Negative (NEG) Urine Bilirubin Negative (NEG) Urine Urobilinogen Dipstick 0.2 mg/dL (0.2 mg/dL) Urine Leukocyte Esterase Negative (NEG) Urine RBC 0 /HPF (0-2) Urine WBC 0 /HPF (0-4) Urine Squamous Epithelial Cells Mod /LPF Urine Bacteria 0 /HPF (0-FEW) Sodium Level 138 mmol/L (136-145) Potassium Level 3.8 mmol/L (3.5-5.1) Chloride Level 105 mmol/L (98-107) Carbon Dioxide Level 27 mmol/L (21-32) Anion Gap 6 (6-14) Blood Urea Nitrogen 16 mg/dL (7-20) Creatinine 0.8 mg/dL (0.6-1.0) Estimated GFR (Cockcroft-Gault) 102.6 BUN/Creatinine Ratio 20 (6-20) Glucose Level 90 mg/dL (70-99) Calcium Level 8.8 mg/dL (8.5-10.1) Total Bilirubin 0.1 mg/dL (0.2-1.0) L Aspartate Amino Transferase (AST) 15 U/L (15-37) Alanine Aminotransferase (ALT) 22 U/L (14-59) Alkaline Phosphatase 86 U/L (46-116) Total Protein 7.6 g/dL (6.4-8.2) Albumin 3.8 g/dL (3.4-5.0) Albumin/Globulin Ratio 1.0 (1.0-1.7) Lipase 112 U/L (73-393) Urine Opiates Screen Pos (NEG) Urine Methadone Screen Neg (NEG) Urine Barbiturates Neg (NEG) Urine Phencyclidine Screen Neg (NEG) Urine Amphetamine/Methamphetamine Neg (NEG) Urine Benzodiazepines Screen Neg (NEG) Urine Cocaine Screen Neg (NEG) Urine Cannabinoids Screen Neg (NEG) Ethyl Alcohol Level < 10 mg/dL (0-10) Urine Ethyl Alcohol Neg (NEG) POC Urine HCG, Qualitative Hcg negative (Negative) Laboratory Tests 08/03/19 18:50 Laboratory Tests 08/03/19 18:50 (LISA FORBES MD) EKG EKG [] (ROQUE ROJAS APRN) Radiology/Procedures Radiology/Procedures []PROCEDURE: CT ABD PELV W/ IV CONTRST ONLY Study: CT abdomen/pelvis with intravenous contrast Indication: Abdominal pain. Comparison: 03/10/2019 Technique: Helical CT imaging performed of the abdomen and pelvis after the intravenous administration of 75 cc Omnipaque 300 contrast. Sagittal and coronal reformats were obtained. One or more of the following individualized dose reduction techniques were utilized for this examination: 1. Automated exposure control 2. Adjustment of the mA and/or kV according to patient size 3. Use of iterative reconstruction technique. Findings: Unremarkable lower lungs and visualized heart. No acute abnormality of the liver, gallbladder, pancreas, spleen, adrenal glands or kidneys. No hydroureteronephrosis. Unremarkable urinary bladder. The uterus and ovaries are within normal limits for age. No pericolonic inflammation. Nonobstructed small bowel. Unremarkable stomach. Normal aortic caliber. No free air. Unremarkable body wall soft tissues. No acute osseous abnormality. Impression: No acute abnormality identified throughout the abdomen or pelvis. Electronically signed by: BERNICE BLAKE MD (08/03/2019 8:14 PM) [facility] [place] DICTATED and SIGNED BY: BERNICE BLAKE MD DATE: 08/03/192013 (ROQUE ROJAS APRN) Course & Med Decision Making Course & Med Decision Making Pertinent Labs and Imaging studies reviewed. (See chart for details) This is a 29-year-old female patient presenting to the ED today complaining of abdominal pain mostly around her umbilicus, symptoms have been going on for 4 days. Negative urine hCG, CBC, CMP, lipase, urine analysis, CT of the abdomen and pelvis are all negative for any acute findings. Informed patient she'll be discharged at home, she started begging for pain medicine specifically hydrocodone or any narcotics. Informed patient there is no indication for her to get any narcotics. She tried begging for the same medicine through the tech as well as RN. Reminded patient she does not have any indication for her to get narcotic pain medicine with negative abdominal work up. (ROQUE ROJAS APRN) Dragon Disclaimer Dragon Disclaimer This electronic medical record was generated, in whole or in part, using a voice recognition dictation system. (ROQUE ROJAS APRN) Departure Departure Impression: Primary Impression: Abdominal pain Disposition: HOME, SELF-CARE Condition: STABLE Referrals: NO PCP (PCP) follow up with your doctor in 1 week Patient Instructions: Abdominal Pain (Nonspecific) Additional Instructions: You were evaluated in the emergency room for abdominal pain, your CAT scan of the abdomen and pelvic was negative for any acute findings, your CBC, CMP, lipase and urine analysis were negative. Please follow-up with your doctor in the next 7 days. Scripts Ondansetron (ONDANSETRON ODT) 4 Mg Tab.rapdis 1 TAB PO PRN Q6-8HRS, #16 TAB Prov: ROQUE ROJAS APRN 08/03/19 Dicyclomine Hcl (DICYCLOMINE HCL) 20 Mg Tablet 1 TAB PO TID, #20 TAB 0 Refills Prov: ROQUE ROJAS APRN 08/03/19 Problem Qualifiers Primary Impression: Abdominal pain Abdominal location: periumbilical Qualified Codes: R10.33 - Periumbilical pain ROQUE ROJAS APRN Aug 03, 2019 21:46 LISA FORBES MD Aug 04, 2019 18:21
== END 2019-08-03 21:50 | disposition home or self-care (01) ==
LOC: ER 17:44
DX: R10.33 Periumbilical pain (principal); Z98.890 Other specified postprocedural states; Z91.018 Allergy to other foods; Z79.899 Other long term (current) drug therapy
CPT/HCPCS: 36415; 74177; 80053; 80307; 81001; 81025; 83690; 85025; 96374; 96375; 99285; G0480; J2405; J3010; J3490; J7030; Q9967

== ENCOUNTER 2021-01-01 01:02 | Emergency (ER) | payer OTHER ==
[~2021-01-01 01:02] MED LIST changes: +DICY20TA3 PO
[2021-01-01 10:19] LABS: BACTERIA,URINE 0 /HPF (0-FEW); BILIRUBIN,URINE NEGATIVE (NEG); CLARITY,URINE CLEAR; COLOR,URINE YELLOW; NITRITE,URINE NEGATIVE (NEG); PROTEIN,URINE NEGATIVE (NEG-TRACE); RBC,URINE 0 /HPF (0-2); UROBILINOGEN,URINE 0.2 mg/dL (0.2 mg/dL); WBC,URINE 0 /HPF (0-4)
== END 2021-01-01 03:45 | disposition left against medical advice (07) ==
LOC: ER 01:02
DX: G89.29 Other chronic pain (principal); R10.84 Generalized abdominal pain; M25.551 Pain in right hip; M25.552 Pain in left hip; M54.5 Low back pain
CPT/HCPCS: 81001; 81025; 99283; 99285-25

== ENCOUNTER 2021-02-04 21:14 | Emergency (ER) | payer OTHER | END 2021-02-04 22:20 | disposition left against medical advice (07) | LOC: ER 21:14 | DX: R51.9 Headache, unspecified (principal); R50.9 Fever, unspecified; R10.9 Unspecified abdominal pain; Z53.21 Procedure and treatment not carried out due to patient leaving prior to being seen by health care provider ==

== ENCOUNTER 2021-02-28 13:03 | Emergency (ER) | payer OTHER ==
[~2021-02-28] VITALS: Ht 157.5 cm; Wt 68.2 kg
[2021-02-28 14:25] LABS: BILIRUBIN,URINE NEGATIVE (NEG); CLARITY,URINE CLEAR; COLOR,URINE YELLOW; NITRITE,URINE NEGATIVE (NEG); PROTEIN,URINE NEGATIVE (NEG-TRACE); UROBILINOGEN,URINE 0.2 mg/dL (0.2 mg/dL)
[2021-02-28 14:33] LABS: BACTERIA,URINE FEW /HPF (0-FEW); RBC,URINE 0 /HPF (0-2); WBC,URINE 0 /HPF (0-4)
[2021-02-28 14:59] LABS: BASO % 1 % (0-3); EOS % 1 % (0-3); HEMATOCRIT 36.8 % (36.0-47.0); HEMOGLOBIN 11.9 g/dL (12.0-15.5); LYMPH # 1.1 x10^3/uL (1.0-4.8); LYMPH % 23 % (24-48); MEAN CORPUSCULAR HEMOGLOBIN 24 pg (25-35); MEAN CORPUSCULAR HGB CONC 32 g/dL (31-37); MEAN CORPUSCULAR VOLUME 75 fL (79-100); MONO # 0.3 x10^3/uL (0.0-1.1); MONO % 7 % (0-9); NEUT # 3.2 x10^3/uL (1.8-7.7); NEUT % 68 % (31-73); PLATELET COUNT 394 x10^3/uL (140-400); RED BLOOD COUNT 4.91 x10^6/uL (3.50-5.40); RED CELL DISTRIBUTION WIDTH 13.3 % (11.5-14.5); WHITE BLOOD COUNT 4.7 x10^3/uL (4.0-11.0)
[2021-02-28] MEDS ORDERED: IV NORMAL SALINE 1000ML BAG 1,000 ML IV SCH (15:00)
[2021-02-28 15:10] LABS: CALCIUM 9.2 mg/dL (8.5-10.1); GFR 78.8; POTASSIUM 3.7 mmol/L (3.5-5.1)
[2021-02-28 15:15] LABS: ALBUMIN 4.6 g/dL (3.4-5.0); ALBUMIN/GLOBULIN RATIO 1.2 (1.0-1.7); TOTAL BILIRUBIN 0.4 mg/dL (0.2-1.0); TOTAL PROTEIN 8.6 g/dL (6.4-8.2)
[2021-02-28] MEDS ORDERED: ONDANSETRON PF 4 MG/2 ML VIAL. IVP ONE (15:15)
[2021-02-28] MEDS ORDERED: fentaNYL PF VIAL 100 MCG/2 ML VIAL IVP ONE (15:15)
[2021-02-28] MEDS ORDERED: IOHEXOL 300 MG/ML 100ML VIAL. IV ONE (15:30)
[2021-02-28] MEDS ORDERED: CONTRAST GIVEN. MC PRN (15:30)
--- NOTE | 2021-02-28 15:51 | RAD ---
EXAM: Abdomen and pelvis CT with intravenous contrast. HISTORY: Pain. TECHNIQUE: Computed tomographic images of the abdomen and pelvis were obtained following the administ ration of intravenous contrast. Multiplanar reformatting was performed. *One or more of the following individualized dose reduction techniques were utilized for this examina tion: 1. Automated exposure control. 2. Adjustment of the mA and/or kV according to patient size. 3. Use of iterative reconstruction technique. COMPARISON: 08/03/2019 and 03/22/2018. FINDINGS: Evaluation of the lower thorax is unremarkable. No hepatic lesion is seen. The gallbladder, pancreas, spleen, adrenal glands and kidneys are unremarkable. The appendix is not seen. There are n o secondary findings to suggest acute appendicitis. There is no convincing enteritis or colitis. Ther e are multiple ovarian follicles with suspected dominant right ovarian follicle measuring 2.5 cm. The re is a trace amount of pelvic free fluid, within physiologic limits. The urinary bladder is unremark able. The uterus is unremarkable. There are prominent pericecal lymph nodes, decreased compared to pr ior studies. These are likely physiologic. There is no acute or suspicious osseous lesion. IMPRESSION: 1. 2.5 cm physiologic dominant right ovarian follicle and trace amount of physiologic pelvic free flu id. 2. No acute abdominal finding. Electronically signed by: Francesca Sarmiento MD (02/28/2021 3:49 PM) [id number]
--- NOTE | 2021-02-28 16:19 | PHYS DOC ---
Past Medical History Past Medical History: No Pertinent History Additional Past Medical Histor: hernia repair one year ago Past Surgical History: Additional Past Surgical Histo: hernia repair Smoking Status: Never Smoker Alcohol Use: None Drug Use: None General Adult EDM: Chief Complaint: ABDOMINAL PAIN HPI: HPI: Patient is a 30 year old female who presents with left sided abdominal pain that goes around to her left back. She states when she coughs it hurts. States she is also had nausea and she has a headache. She denies any Covid vaccines. She states this is all been going on for last 4 days. States she took Tylenol this morning and Advil also this morning at 5:00. She has a history of a hernia surgery and a . She states the pain feels like a sharp pain. She states it comes and goes. She denies chest pain, shortness of breath, vomiting, diarrhea, fever, syncope, dizziness, numbness or tingling, focal weakness, cough, urinary symptoms. Review of Systems: Review of Systems: Constitutional: Denies fever or chills. [] Eyes: Denies change in visual acuity. [] HENT: Denies nasal congestion or sore throat. [] Respiratory: Denies cough or shortness of breath. [] Cardiovascular: Denies chest pain or edema. [] GI: + Left sided abdominal pain, +nausea, denies vomiting, bloody stools or diarrhea. [] : Denies dysuria. [] Musculoskeletal: Denies back pain or joint pain. [] Integument: Denies rash. [] Neurologic: +headache, denies focal weakness or sensory changes. [] Endocrine: Denies polyuria or polydipsia. [] Lymphatic: Denies swollen glands. [] Psychiatric: Denies depression or anxiety. [] Heart Score: C/O Chest Pain: No Risk Factors: Risk Factors: DM, Current or recent (<one month) smoker, HTN, HLP, family history of CAD, obesity. Risk Scores: Score 0 - 3: 2.5% MACE over next 6 weeks - Discharge Home Score 4 - 6: 20.3% MACE over next 6 weeks - Admit for Clinical Observation Score 7 - 10: 72.7% MACE over next 6 weeks - Early Invasive Strategies Current Medications: Current Medications Medications (Trade) Dose Ordered Sig/Koby Start Time Stop Time Status Last Admin Dose Admin Fentanyl Citrate (Fentanyl 2ml Vial) 50 mcg 1X ONCE 02/28/21 15:15 02/28/21 15:16 DC 02/28/21 15:49 50 MCG Info (CONTRAST GIVEN -- Rx MONITORING) 1 each PRN DAILY PRN 02/28/21 15:30 03/02/21 15:29 Iohexol (Omnipaque 300 Mg/ml) 75 ml 1X ONCE 02/28/21 15:30 02/28/21 15:31 DC Ondansetron HCl (Zofran) 4 mg 1X ONCE 02/28/21 15:15 02/28/21 15:16 DC 02/28/21 15:49 4 MG Sodium Chloride 1,000 ml @ 1,000 mls/hr Q1H 02/28/21 15:00 02/28/21 15:59 DC 02/28/21 15:49 1,000 MLS/HR Allergies: Allergies: Allergies Coded Allergies Type Severity Reaction Last Updated Verified chicken derived Allergy Intermediate Swelling 03/10/19 Yes strawberry Adverse Reaction Intermediate Nausea and Vomiting 04/13/18 Yes Physical Exam: PE: Constitutional: Well developed, well nourished, no acute distress, non-toxic appearance. [] HENT: Normocephalic, atraumatic, bilateral external ears normal, oropharynx moist, no oral exudates, nose normal. [] Eyes: PERRLA, EOMI, conjunctiva normal, no discharge. [] Neck: Normal range of motion, no tenderness, supple, no stridor. [] Cardiovascular:Heart rate regular rhythm, no murmur [] Lungs & Thorax: Bilateral breath sounds clear to auscultation [] Abdomen: Bowel sounds normal, soft, left sided tenderness, no masses, no pulsatile masses. [] Skin: Warm, dry, no erythema, no rash. [] Back: No tenderness, no CVA tenderness. [] Extremities: No tenderness, no cyanosis, no clubbing, ROM intact, no edema. [] Neurologic: Alert and oriented X 3, normal motor function, normal sensory function, no focal deficits noted. [] Psychologic: Affect normal, judgement normal, mood normal. [] Current Patient Data: Labs: Laboratory Tests Test 02/28/21 13:56 02/28/21 14:06 02/28/21 14:11 Urine Collection Type Void Urine Color Yellow Urine Clarity Clear Urine pH 6.0 (<5.0-8.0) Urine Specific [place] 1.025 (1.000-1.030) Urine Protein Negative mg/dL (NEG-TRACE) Urine Glucose (UA) Negative mg/dL (NEG) Urine Ketones (Stick) Negative mg/dL (NEG) Urine Blood Negative (NEG) Urine Nitrite Negative (NEG) Urine Bilirubin Negative (NEG) Urine Urobilinogen Dipstick 0.2 mg/dL (0.2 mg/dL) Urine Leukocyte Esterase Negative (NEG) Urine RBC 0 /HPF (0-2) Urine WBC 0 /HPF (0-4) Urine Squamous Epithelial Cells Many /LPF Urine Bacteria Few /HPF (0-FEW) Urine Mucus Slight /LPF POC Urine HCG, Qualitative Hcg negative (Negative) White Blood Count 4.7 x10^3/uL (4.0-11.0) Red Blood Count 4.91 x10^6/uL (3.50-5.40) Hemoglobin 11.9 g/dL (12.0-15.5) L Hematocrit 36.8 % (36.0-47.0) Mean Corpuscular Volume 75 fL (79-100) L Mean Corpuscular Hemoglobin 24 pg (25-35) L Mean Corpuscular Hemoglobin Concent 32 g/dL (31-37) Red Cell Distribution Width 13.3 % (11.5-14.5) Platelet Count 394 x10^3/uL (140-400) Neutrophils (%) (Auto) 68 % (31-73) Lymphocytes (%) (Auto) 23 % (24-48) L Monocytes (%) (Auto) 7 % (0-9) Eosinophils (%) (Auto) 1 % (0-3) Basophils (%) (Auto) 1 % (0-3) Neutrophils # (Auto) 3.2 x10^3/uL (1.8-7.7) Lymphocytes # (Auto) 1.1 x10^3/uL (1.0-4.8) Monocytes # (Auto) 0.3 x10^3/uL (0.0-1.1) Eosinophils # (Auto) 0.0 x10^3/uL (0.0-0.7) Basophils # (Auto) 0.0 x10^3/uL (0.0-0.2) Sodium Level 139 mmol/L (136-145) Potassium Level 3.7 mmol/L (3.5-5.1) Chloride Level 103 mmol/L (98-107) Carbon Dioxide Level 26 mmol/L (21-32) Anion Gap 10 (6-14) Blood Urea Nitrogen 8 mg/dL (7-20) Creatinine 1.0 mg/dL (0.6-1.0) Estimated GFR (Cockcroft-Gault) 78.8 BUN/Creatinine Ratio 8 (6-20) Glucose Level 89 mg/dL (70-99) Calcium Level 9.2 mg/dL (8.5-10.1) Total Bilirubin 0.4 mg/dL (0.2-1.0) Aspartate Amino Transferase (AST) 15 U/L (15-37) Alanine Aminotransferase (ALT) 21 U/L (14-59) Alkaline Phosphatase 68 U/L (46-116) Total Protein 8.6 g/dL (6.4-8.2) H Albumin 4.6 g/dL (3.4-5.0) Albumin/Globulin Ratio 1.2 (1.0-1.7) Lipase 62 U/L (73-393) L Laboratory Tests 02/28/21 14:11 Laboratory Tests 02/28/21 14:11 Vital Signs: Vital Signs Date Time Temp Pulse Resp B/P (MAP) Pulse Ox O2 Delivery O2 Flow Rate FiO2 02/28/21 13:47 98.7 94 16 115/72 (90) 97 Room Air 98.7 EKG: EKG: [] Radiology/Procedures: Radiology/Procedures: [] Impression: [facility] [address] [place], [place] [id number] IMAGING REPORT Signed PATIENT: CHELSEY AVILES ACCOUNT: [id number] : 1990 LOCATION: ER AGE: 30 SEX: F EXAM STATUS: PRE ER ORD. PHYSICIAN: ZANA KIRKLAND APRN REASON: abd tenderness, flank pain PROCEDURE: CT ABD PELV W/ IV CONTRST ONLY EXAM: Abdomen and pelvis CT with intravenous contrast. HISTORY: Pain. TECHNIQUE: Computed tomographic images of the abdomen and pelvis were obtained following the administration of intravenous contrast. Multiplanar reformatting was performed. *One or more of the following individualized dose reduction techniques were utilized for this examination: 1. Automated exposure control. 2. Adjustment of the mA and/or kV according to patient size. 3. Use of iterative reconstruction technique. COMPARISON: 08/03/2019 and 03/22/2018. FINDINGS: Evaluation of the lower thorax is unremarkable. No hepatic lesion is seen. The gallbladder, pancreas, spleen, adrenal glands and kidneys are unremarkable. The appendix is not seen. There are no secondary findings to suggest acute appendicitis. There is no convincing enteritis or colitis. There are multiple ovarian follicles with suspected dominant right ovarian follicle measuring 2.5 cm. There is a trace amount of pelvic free fluid, within physiologic limits. The urinary bladder is unremarkable. The uterus is unremarkable. There are prominent pericecal lymph nodes, decreased compared to prior studies. These are likely physiologic. There is no acute or suspicious osseous lesion. IMPRESSION: 1. 2.5 cm physiologic dominant right ovarian follicle and trace amount of physiologic pelvic free fluid. 2. No acute abdominal finding. Electronically signed by: Francesca Laird MD (02/28/2021 3:49 PM) [id number] DICTATED and SIGNED BY: FRANCESCA LAIRD MD DATE: 02/28/21 [id number] 0 [facility] [address] [place] [address] IMAGING REPORT Signed PATIENT: CHELSEY AVILES ACCOUNT: [id number] : 1990 LOCATION: ER AGE: 30 SEX: F EXAM STATUS: REG ER ORD. PHYSICIAN: ZANA KIRKLAND APRN REASON: left lower pelvic pain PROCEDURE: PELVIS COMPLETE EXAM: ULTRASOUND PELVIS INDICATION: Left lower pelvic pain. Right ovarian cyst seen on CT study. COMPARISON: CT study performed today. TECHNIQUE: Transabdominal sonography was performed. FINDINGS: The uterus is anteverted in position. The longitudinal and AP and transverse dimensions of the uterus are 8.6 cm and 3.6 cm and 5.4 cm respectively. The endometrial canal measures 6 mm in thickness which is normal. No uterine mass or fibroid is seen. No free fluid is seen within the cul-de-sac. The right ovary measures 3.1 cm and 2.5 cm and 2.2 cm in size and contains a 1.9 cm follicular cyst. Color Doppler flow is seen within the right ovary. The left ovary measures 3.0 cm and 1.8 cm and 3.9 cm in size and is normal. Color Doppler flow is seen within left ovary. No adnexal mass is evident. IMPRESSION: 1.9 cm follicular cyst of the right ovary corresponding to CT finding. Electronically signed by: Martha Sanon MD (02/28/2021 5:22 PM) [id number] DICTATED and SIGNED BY: MARTHA SANON MD DATE: 02/28/21 [id number] 0 Course & Med Decision Making: Course & Med Decision Making Pertinent Labs and Imaging studies reviewed. (See chart for details) COVID-19 CRITERIA: The patient was evaluated during the global COVID-19 pandemic, and that diagnosis was suspected/considered upon their initial presentation. Their evaluation, treatment and testing was consistent with current guidelines for patients who present with complaints or symptoms that may be related to COVID-19. See HPI. Alert and oriented x4. Ambulatory steady gait. Speaks in full clear sentences. Abdomen is soft but tender to the left upper side. No CVA tenderness. Skin pink warm and dry. Vital signs within normal limits. Urinalysis shows no infection. Blood work is unremarkable. CT abdomen pelvis shows ovarian cyst. Patient denies any risk for sexually transmitted diseases. She denies any abnormal vaginal discharge. Patient is refusing Covid testing. CT finds a right ovarian cyst. Ultrasound also shows right ovarian cyst and good normal flow to bilateral ovaries. Blood work is unremarkable. Received pain medication and fluids. Patient is discharged home and follow-up with primary care. [] Dragon Disclaimer: Dragon Disclaimer: This electronic medical record was generated, in whole or in part, using a voice recognition dictation system. COVID-19 Patient Risks: Age 65 or older: No Sign of co-morbidity: No Exp to person + for COVID: No Exp to PUI: No Travel from affected area: No Lower respiratory symptoms: No Fever: No Other: Yes (n,v, headache) PPE Use: Full PPE with N95 mask or PAPR: Yes Departure Departure Impression: Primary Impression: Abdominal pain Qualified Codes: R10.30 - Lower abdominal pain, unspecified Additional Impressions: Person under investigation for COVID-19 Ovarian cyst Qualified Codes: N83.201 - Unspecified ovarian cyst, right side Disposition: HOME / SELF CARE / HOMELESS Condition: STABLE Referrals: NO PCP (PCP) KWAME JUSTIN MD Patient Instructions: Abdominal Pain (Nonspecific), Nausea and Vomiting, Ovarian Cyst Additional Instructions: Follow-up with primary care provider. Drink plenty of fluids. Follow-up with a director of direct marketing for ovarian cyst. Take ibuprofen for your pain and try using a heating pad. If your pain becomes severe and you cannot keep down any fluids you begin running a fever any return emergency room. Scripts Ibuprofen (IBUPROFEN) 600 Mg Tablet 600 MG PO PRN Q6HRS PRN for INFLAMMATION, #20 TAB Prov: ZANA KIRKLAND APRN 02/28/21 ZANA KIRKLAND APRN Feb 28, 2021 16:18
[2021-02-28] MEDS ORDERED: KETOROLAC 30 MG/ML VIAL. IVP ONE (16:30)
--- NOTE | 2021-02-28 17:24 | RAD ---
EXAM: ULTRASOUND PELVIS INDICATION: Left lower pelvic pain. Right ovarian cyst seen on CT study. COMPARISON: CT study performed today. TECHNIQUE: Transabdominal sonography was performed. FINDINGS: The uterus is anteverted in position. The longitudinal and AP and transverse dimensions of the uterus are 8.6 cm and 3.6 cm and 5.4 cm respectively. The endometrial canal measures 6 mm in thickness whic h is normal. No uterine mass or fibroid is seen. No free fluid is seen within the cul-de-sac. The rig ht ovary measures 3.1 cm and 2.5 cm and 2.2 cm in size and contains a 1.9 cm follicular cyst. Color D oppler flow is seen within the right ovary. The left ovary measures 3.0 cm and 1.8 cm and 3.9 cm in s ize and is normal. Color Doppler flow is seen within left ovary. No adnexal mass is evident. IMPRESSION: 1.9 cm follicular cyst of the right ovary corresponding to CT finding. Electronically signed by: Scout Sanon MD (02/28/2021 5:22 PM) [id number]
[2021-02-28] MEDS ORDERED: IBUP-1007 PO (17:42)
[2021-02-28 17:45] VITALS: BP 127/69
[2021-03-06] MEDS ORDERED: OXYC1TAB15 PO (16:52)
== END 2021-02-28 17:55 | disposition home or self-care (01) ==
LOC: ER 13:03
DX: N83.201 Unspecified ovarian cyst, right side (principal); R10.30 Lower abdominal pain, unspecified; Z20.822 Contact with and (suspected) exposure to COVID-19; Z91.018 Allergy to other foods; Z98.890 Other specified postprocedural states
CPT/HCPCS: 36415; 74177; 76856; 80053; 81001; 81025; 83690; 85025; 96361; 96374; 96375; 99285; J1885; J2405; J3010; J7030